=== PATIENT | female | born 1995 | race Caucasian/White ===

== ENCOUNTER 2024-01-22 22:00 | Emergency (ER) | payer MEDICAID ==
[~2024-01-22] VITALS: Ht 157.5 cm; Wt 68.0 kg
[2024-01-22 22:28] VITALS: TEMP 98.5; O2SAT 100
[2024-01-22] MEDS: KETOROLAC 15MG/ML VIAL IM ONE (23:39)
[2024-01-22] MEDS ORDERED: IBUP-2029 MT (23:51)
[2024-01-23 00:30] VITALS: BP 139/78; PULSE 74; RESP 19; O2SAT 98
== END 2024-01-23 00:31 | disposition home or self-care (01) ==
LOC: ER 22:00
DX: S80.12XA Contusion of left lower leg, initial encounter (principal); M79.662 Pain in left lower leg; X58.XXXA Exposure to other specified factors, initial encounter; Y93.89 Activity, other specified; Y92.89 Other specified places as the place of occurrence of the external cause; Y99.8 Other external cause status
CPT/HCPCS: 99283; 73590; 96372; J1885